=== PATIENT | male | born 1955 | race Caucasian/White ===

== ENCOUNTER 2016-05-25 13:31 | Outpatient (CLI) ==
[2016-02-11 14:04] VITALS: BMI 34.7
[2016-05-25 13:51] LABS: BASOPHILS % (AUTO) 0.4 % (0.0-3.0); EOSINOPHILS # (AUTO) 0.2 K/ul (0.0-0.7); EOSINOPHILS % (AUTO) 3.1 % (0.0-7.0); HEMATOCRIT 47.2 % (42.0-52.0); HEMOGLOBIN 15.4 g/dl (14.0-18.0); IMMATURE GRANULOCYTE % (AUTO) 0.6 % (0.0-5.0); LYMPHOCYTES # (AUTO) 1.7 K/uL (0.60-3.4); LYMPHOCYTES % (AUTO) 32.6 (10.0-50.0); MEAN CORPUSCULAR HEMOGLOBIN 26.9 pg (27.0-31.0); MEAN CORPUSCULAR HGB CONC 32.6 (31.8-35.4); MEAN CORPUSCULAR VOLUME 82.5 fl (80.0-94.0); MONOCYTES # (AUTO) 0.6 K/uL (0.4-2.0); NEUTROPHILS # (AUTO) 2.6 K/ul (2.0-6.9); NEUTROPHILS % (AUTO) 51.3; PLATELET COUNT 158 10^3/uL (140-440); RED BLOOD COUNT 5.72 10^6/ul (4.70-6.10); WHITE BLOOD COUNT 5.09 K/ul (4.2-10.2)
[2016-05-25 14:07] LABS: ALBUMIN 3.9 g/dL (3.4-5.0); ALBUMIN/GLOBULIN RATIO 1.22; ANION GAP 15.6; BILIRUBIN,TOTAL 0.56 mg/dL (0.00-1.20); BUN/CREATININE RATIO 22.82; CALCIUM 10.2 mg/dL (8.2-10.2); CHOL/HDL RATIO 3.5 (4.5-6.4); CREATININE 0.92 mg/dL (0.60-1.10); POTASSIUM 4.6 mmol/L (3.5-5.1); TOTAL PROTEIN 7.1 g/dL (6.4-8.2)
== END 2016-05-25 13:32 | disposition home or self-care (01) ==
LOC: LAB 13:31
PROVIDERS: ATTEND Physician Assistant
DX: Z00.00 Encounter for general adult medical examination without abnormal findings (principal)
CPT/HCPCS: 36415; 80053; 80061; 83036; 85025

== ENCOUNTER 2016-06-07 06:48 | Day surgery (SDC) ==
[2016-02-11 14:04] VITALS: BMI 34.7
[2016-06-07] MEDS ORDERED: LIDOCAINE 1% 20 ML MDV ID ONE (07:10)
[2016-06-07] MEDS ORDERED: LIDOCAINE 1% 20 ML MDV ONE (07:10)
[2016-06-07] MEDS ORDERED: ALBUTEROL 0.083% NEB NEB STA (07:11)
[2016-06-07] MEDS ORDERED: DIPRIVAN 20 ML VIAL IVP ONE (08:00)
[2016-06-07 09:13] VITALS: BP 128/65; TEMP 97.4
--- NOTE | 2016-06-08 07:13 | OP ---
INDICATIONS FOR PROCEDURE: 60-year-old gentleman presents for endoscopy and colonoscopy. He has been having intermittent dysphagia. He also has a history of adenomatous colon polyps on colonoscopy 3 years ago. MEDICATIONS: SEE ANESTHESIA NOTES. PROCEDURE: 1. ENDOSCOPY, ESOPHAGEAL BIOPSY, BOLIVIAN DILATATION. 2. COLONOSCOPY. REPORT: The risks, benefits, alternatives and limitations were discussed in detail with the patient. Informed consent was obtained. After adequate sedation was achieved, the video endoscope was introduced in the posterior pharynx and esophagus under direct vision. I easily advanced down to the second portion of the duodenum. I then slowly withdrew. The duodenal mucosa appeared unremarkable as did the duodenal bulb. The antrum and body were relatively unremarkable. The scope was retroflexed to look at the cardia and fundus which was unremarkable. The scope was anteflexed and withdrawn back in the esophagus. In the distal esophagus, there were two breaks in the esophageal mucosa consistent with acid reflux. There is also circumferential scarring causing stretching right at the GE junction. The inflammatory changes were biopsied for histological review. The remaining esophagus appeared unremarkable. I advanced the scope back down the gastric lumen. I placed the guidewire. Over the guidewire, I easily advanced a 54 [place] dilator with ease. The patient tolerated the procedure well with stable vital signs and pulse oximetry throughout. The patient's bed was turned. A digital rectal exam revealed good tone, no masses. The colonoscope was introduced into the rectum, advanced under direct visual guidance to the cecum. The cecum was identified by the appendiceal orifice and IC valve. I then slowly withdrew the scope in a circumferential manner examining the mucosa quite carefully. I looked on the proximal and distal side of folds and flexures as best as possible. I was able to retroflex the scope in the right colon and left colon to increase visualization. The colonic mucosa was unremarkable its entire length including on retroflex view of the anal canal. The prep was adequate. There was a little bit of semi solid stool scattered here and there but this was able to be washed and suctioned off as best as possible. The withdrawal time was 9 minutes and 32 seconds. The patient tolerated the procedure well with stable vital signs and pulse oximetry throughout. IMPRESSION: 1. 2+ reflux esophagitis 2. Distal esophageal stricture dilated as above 3. Normal colon exam RECOMMENDATIONS: 1. Strict reflux precautions. 2. Pantoprazole 40 mg q.a.m. or similar PPI therapy. 3. Repeat colonoscopy examination again in 5 years based on the prep and history of adenomatous polyps. 4. Will see him back in the office as needed. CC: KAI HUBBARD M.D. [address] [place] [id number] [facility]
== END 2016-06-07 09:27 | disposition home or self-care (01) ==
LOC: SURG 06:48
PROVIDERS: ATTEND Internal Medicine Gastroenterology
DX: Z86.010 Personal history of colon polyps (principal); R13.10 Dysphagia, unspecified; D13.1 Benign neoplasm of stomach; K21.0 Gastro-esophageal reflux disease with esophagitis; K22.2 Esophageal obstruction; E11.9 Type 2 diabetes mellitus without complications; Z87.09 Personal history of other diseases of the respiratory system
CPT/HCPCS: 94640

== ENCOUNTER 2016-08-15 11:19 | Outpatient (CLI) ==
[2016-02-11 14:04] VITALS: BMI 34.7
[2016-08-15 11:38] LABS: BASOPHILS % (AUTO) 0.4 % (0.0-3.0); EOSINOPHILS # (AUTO) 0.1 K/ul (0.0-0.7); HEMOGLOBIN 14.7 g/dl (14.0-18.0); IMMATURE GRANULOCYTE % (AUTO) 0.7 % (0.0-5.0); LYMPHOCYTES # (AUTO) 1.3 K/uL (0.60-3.4); LYMPHOCYTES % (AUTO) 28.2 (10.0-50.0); MEAN CORPUSCULAR HEMOGLOBIN 27.3 pg (27.0-31.0); MEAN CORPUSCULAR HGB CONC 32.7 (31.8-35.4); MEAN CORPUSCULAR VOLUME 83.6 fl (80.0-94.0); MONOCYTES # (AUTO) 0.5 K/uL (0.4-2.0); MONOCYTES % (AUTO) 10.4 (0-10); NEUTROPHILS # (AUTO) 2.7 K/ul (2.0-6.9); NEUTROPHILS % (AUTO) 58.3; PLATELET COUNT 176 10^3/uL (140-440); RED BLOOD COUNT 5.38 10^6/ul (4.70-6.10); WHITE BLOOD COUNT 4.61 K/ul (4.2-10.2)
[2016-08-15 11:59] LABS: ALBUMIN 3.8 g/dL (3.4-5.0); ALBUMIN/GLOBULIN RATIO 1.19; ANION GAP 13.1; BILIRUBIN,TOTAL 0.58 mg/dL (0.00-1.20); BUN/CREATININE RATIO 24.32; CALCIUM 9.1 mg/dL (8.2-10.2); CREATININE 0.74 mg/dL (0.60-1.10); POTASSIUM 4.1 mmol/L (3.5-5.1)
== END 2016-08-15 11:20 | disposition home or self-care (01) ==
LOC: LAB 11:19
PROVIDERS: ATTEND Physician Assistant
DX: E11.9 Type 2 diabetes mellitus without complications (principal); Z00.00 Encounter for general adult medical examination without abnormal findings
CPT/HCPCS: 36415; 80053; 83036; 85025

== ENCOUNTER 2016-08-19 10:01 | Outpatient (CLI) ==
[2016-02-11 14:04] VITALS: BMI 34.7
[2016-08-22 11:42] LABS: PSA, FREE 1.41 ng/mL
== END 2016-08-19 10:02 | disposition home or self-care (01) ==
LOC: LAB 10:01
PROVIDERS: ATTEND Student in an Organized Health Care Education/Training Program
DX: Z12.5 Encounter for screening for malignant neoplasm of prostate (principal); R97.20 Elevated prostate specific antigen [PSA]
CPT/HCPCS: 36415

== ENCOUNTER 2016-10-30 14:01 | Emergency (ER) ==
[2016-10-30 14:06] VITALS: BP 133/78; TEMP 99.5; BMI 32.1
[2016-10-30 14:27] LABS: BILIRUBIN,URINE 2+ (NEGATIVE); KETONES,URINE 1+ (NEGATIVE); LEUKOCYTE ESTERASE ,URINE Negative (NEGATIVE); NITRITE,URINE Positive (NEGATIVE); PH,URINE 5.5 (5-9); PROTEIN,URINE 3+ (NEGATIVE); URINE, BLOOD 3+ (NEGATIVE)
[2016-10-30 14:31] LABS: ADD URINE MICROSCOPIC YES
[2016-10-30] MEDS ORDERED: URO-JET MUCOUSMEMB STA (14:36)
--- NOTE | 2016-10-30 15:21 | ED.PDOC ---
General ED Provider: Dr. JUNI STEVENSON-ER Chief Complaint: Urinary Problem Stated Complaint: i cant pee Time Seen by Physician: 14:10 Mode of Arrival: Walk-In Information Source: Patient Exam Limitations: No limitations Primary Care Provider: EMELIA CASTANEDA Nursing and Triage Documentation Reviewed and Agree: Yes Complaint Exam - Complaint/Exam Patient Complains of: Reports: Dysuria Onset/Duration: a few hours Symptoms Are: Still present Timing: Constant Episodes of Voiding Over Last 12 Hours: 1 Initial Severity: Mild Current Severity: Mild Location of Pain: Reports: Penis, Suprapubic Character: Reports: Constant pressure, Dull, Bloody urine Aggravating: Reports: Straining Alleviating: Reports: None Associated Signs and Symptoms: Reports: Hematuria, Dysuria, Decreased urine output. Denies: Diaphoresis, Back pain, Fever, Constipation, Blood in stool, Rectal pain, Appetite change, Nausea, Vomiting, Penile swelling, Penile discharge, Increased urine frequency, Increased thirst, Decreased activity, Lethargy, Scrotal pain, Scrotal swelling, Abdominal Pain Related History: Reports: Similar episode Testicular Torsion Risk Factors: Reports: None Related Surgical History: Reports: None Abdominal Findings: Present: None Differential Diagnoses: Prostatitis, Other Review of Systems - Review Of Systems Constitutional: Reports: No symptoms Eyes: Reports: No symptoms Ears, Nose, Mouth, Throat: Reports: No symptoms Respiratory: Reports: No symptoms Cardiac: Reports: No symptoms GI: Reports: No symptoms : Reports: Dysuria, Hematuria, Pain Musculoskeletal: Reports: No symptoms Skin: Reports: No symptoms Neurological: Reports: No symptoms Endocrine: Reports: No symptoms Hematologic/Lymphatic: Reports: No symptoms All Other Systems: Reviewed and Negative Past Medical History - Past Medical History Previously Healthy: Yes Endocrine: Reports: DM 2, Dyslipidemia Cardiovascular: Reports: None Respiratory: Reports: COPD Hematological: Reports: None Gastrointestinal: Reports: GERD Genitourinary: Reports: None Neuro/Psych: Reports: Other (note meds) Musculoskeletal: Reports: None Cancer: Reports: None Other Pertinent Past Medical History: ventral hernia - Surgical History General Surgical History: Reports: Unknown - Family History Family History: Reports: Unknown - Social History Smoking Status: Former smoker Hx Substance Use: No Alcohol Screening: None Lives: With family Physical Exam - Physical Exam Appearance: Well-appearing, No pain distress, Well-nourished Pain Distress: Mild Eyes: MIN, EOMI, Conjunctiva clear ENT: Ears normal, Nose normal, Oropharynx normal Neck: Supple Respiratory: Airway patent Cardiovascular: RRR, Pulses normal, No rub, No murmur GI/: Soft Musculoskeletal: Normal strength, ROM intact, No edema, No calf tenderness Skin: Warm, Dry, Normal color Neurological: Sensation intact, Motor intact, Reflexes intact, Cranial nerves intact, Alert, Oriented Psychiatric: Affect appropriate, Mood appropriate, Anxious Critical Care Note - Critical Care Note Total Time (mins): 0 Course - Course Orders, Labs, Meds: Lab Review 10/30/16 14:10 Urine Color Red Urine Clarity Cloudy Urine pH 5.5 Ur Specific [place] 1.020 Urine Protein 3+ Urine Glucose (UA) 2+ Urine Ketones 1+ Urine Blood 3+ Urine Nitrite Positive Urine Bilirubin 2+ Urine Urobilinogen 1.0 Ur Leukocyte Esterase Negative Urine Microscopic RBC Tntc Urine Microscopic WBC 5-10 Ur Squamous Epith Cells Not Reportable Orders Category Date Time Status Bladder Scan [ED BLADDER SCAN] .ONCE EMERGENCY 10/30/16 14:07 Active Garcia [ED CATHETER INSERTION AND CARE] .ONCE EMERGENCY 10/30/16 14:36 Active URINALYSIS C & S IF INDICATED Stat LAB 10/30/16 14:10 Completed URINE CULTURE Stat LAB 10/30/16 14:31 Received Lidocaine HCl [Uro-Jet] MEDS 10/30/16 14:36 Discontinued 10 ml [email or web address] ONCE STA Medications Discontinued Medications Generic Name Dose Route Start Last Admin Trade Name Freq PRN Reason Stop Dose Admin Lidocaine HCl 10 ml 10/30/16 14:36 10/30/16 15:11 Uro-Jet [email or web address] 10/30/16 14:37 10 ml ONCE STA Administration Vital Signs: Temp Pulse Resp BP Pulse Ox 10/30/16 14:02 99.5 F 106 H 20 133/78 94 L Departure - Departure Time of Disposition: 15:21 Disposition: TSF SHORT-TRM HOSP Discharge Problem: Retention of urine Instructions: Urinary Retention in Men (ED) Condition: Good Pt referred to PMD for follow-up: Yes Allergies/Adverse Reactions: Allergies Penicillins Adverse Reaction (Verified 10/30/16 14:07) strawberry [[place]] Adverse Reaction (Verified 10/30/16 14:07) Home Medications: Ambulatory Orders Aspirin [Aspirin EC] 81 mg PO DAILYWM 03/12/13 Transfer Form Completed: Yes Disposition Discussed With: Patient
== END 2016-10-30 15:45 | disposition short-term general hospital (02) ==
LOC: ED 14:01
DX: R33.9 Retention of urine, unspecified (principal); R30.0 Dysuria; R31.0 Gross hematuria
CPT/HCPCS: 81001; 87086; 99285

== ENCOUNTER 2016-12-14 09:35 | Outpatient (CLI) ==
[2016-12-14 10:05] LABS: BASOPHILS # (AUTO) 0.1 K/uL (0-0.2); BASOPHILS % (AUTO) 0.6 % (0.0-3.0); EOSINOPHILS # (AUTO) 0.2 K/ul (0.0-0.7); HEMATOCRIT 43.4 % (42.0-52.0); HEMOGLOBIN 14.2 g/dl (14.0-18.0); IMMATURE GRANULOCYTE % (AUTO) 0.6 % (0.0-5.0); LYMPHOCYTES # (AUTO) 1.7 K/uL (0.60-3.4); LYMPHOCYTES % (AUTO) 21.7 (10.0-50.0); MEAN CORPUSCULAR HEMOGLOBIN 26.6 pg (27.0-31.0); MEAN CORPUSCULAR HGB CONC 32.7 (31.8-35.4); MEAN CORPUSCULAR VOLUME 81.4 fl (80.0-94.0); MONOCYTES # (AUTO) 0.8 K/uL (0.4-2.0); MONOCYTES % (AUTO) 9.9 (0-10); NEUTROPHILS % (AUTO) 64.2; PLATELET COUNT 188 10^3/uL (140-440); RED BLOOD COUNT 5.33 10^6/ul (4.70-6.10); WHITE BLOOD COUNT 7.74 K/ul (4.2-10.2)
[2016-12-14 10:17] LABS: ALBUMIN 3.7 g/dL (3.4-5.0); ALBUMIN/GLOBULIN RATIO 1.09; ANION GAP 17.2; BILIRUBIN,TOTAL 0.31 mg/dL (0.00-1.20); BUN/CREATININE RATIO 24.05; CALCIUM 9.6 mg/dL (8.2-10.2); CHOL/HDL RATIO 3.3 (4.5-6.4); CREATININE 0.79 mg/dL (0.60-1.10); POTASSIUM 4.2 mmol/L (3.5-5.1); TOTAL PROTEIN 7.1 g/dL (5.8-8.1)
== END 2016-12-14 09:36 | disposition home or self-care (01) ==
LOC: LAB 09:35
PROVIDERS: ATTEND Physician Assistant
DX: E11.40 Type 2 diabetes mellitus with diabetic neuropathy, unspecified (principal); R97.20 Elevated prostate specific antigen [PSA]; Z12.5 Encounter for screening for malignant neoplasm of prostate
CPT/HCPCS: 36415; 80053; 80061; 83036; 85025

== ENCOUNTER 2016-12-19 03:01 | Emergency (ER) ==
[2016-12-19 03:09] VITALS: BP 188/87; TEMP 98.6; BMI 32.9
[2016-12-19] MEDS ORDERED: URO-JET MUCOUSMEMB STA (03:18)
--- NOTE | 2016-12-19 03:21 | ED.PDOC ---
General ED Provider: Dr. ANNABEL SHI Chief Complaint: Urinary Problem Stated Complaint: Pateint states he has not voided for the pat 24 hours. Last time he had this he had tohave a howell catheter. Has had prior prostates sugery. Time Seen by Physician: 03:19 Mode of Arrival: Walk-In Information Source: Patient Exam Limitations: No limitations Primary Care Provider: EMELIA CASTANEDA Nursing and Triage Documentation Reviewed and Agree: Yes Review of Systems - Review Of Systems Constitutional: Reports: No symptoms Eyes: Reports: No symptoms Ears, Nose, Mouth, Throat: Reports: No symptoms Respiratory: Reports: No symptoms Cardiac: Reports: No symptoms GI: Reports: Abdominal pain (hypogastric area/ pressure ) : Reports: Other (difficulty voiding ) Musculoskeletal: Reports: No symptoms Skin: Reports: No symptoms Neurological: Reports: No symptoms Endocrine: Reports: No symptoms Hematologic/Lymphatic: Reports: No symptoms All Other Systems: Reviewed and Negative Past Medical History - Past Medical History Previously Healthy: Yes Endocrine: Reports: DM 2, Dyslipidemia Cardiovascular: Reports: None Respiratory: Reports: COPD Hematological: Reports: None Gastrointestinal: Reports: GERD Genitourinary: Reports: None Neuro/Psych: Reports: Other (note meds) Musculoskeletal: Reports: None Cancer: Reports: None Other Pertinent Past Medical History: ventral hernia - Surgical History General Surgical History: Reports: Unknown - Family History Family History: Reports: Unknown - Social History Smoking Status: Former smoker Hx Substance Use: No Alcohol Screening: None - Immunizations Tetanus Shot up to Date: Yes Physical Exam - Physical Exam Appearance: Ill-appearing, Obese Ill-appearing: Mild Pain Distress: Moderate Eyes: MIN, EOMI, Conjunctiva clear ENT: Ears normal, Nose normal, Oropharynx normal Neck: Supple Respiratory: Airway patent, Breath sounds clear, Breath sounds equal, Respirations nonlabored Cardiovascular: RRR, Pulses normal, No rub, No murmur GI/: Soft, No masses, Bowel sounds normal, No Organomegaly, Tender ( suprapubic area ) Musculoskeletal: Normal strength, ROM intact, No edema, No calf tenderness Skin: Warm, Dry, Normal color Neurological: Sensation intact, Motor intact, Reflexes intact, Cranial nerves intact, Alert, Oriented Psychiatric: Affect appropriate, Mood appropriate Critical Care Note - Critical Care Note Total Time (mins): 0 Course - Course Orders, Labs, Meds: Orders Category Date Time Status Howell [CATHETER INSERTION AND CARE] Q8HR CARE 12/19/16 03:15 Active UA [URINALYSIS C & S IF INDICATED] Stat LAB 12/19/16 03:58 Ordered Lidocaine HCl [Uro-Jet] MEDS 12/19/16 03:18 Discontinued 10 ml [email or web address] ONCE STA Medications Discontinued Medications Generic Name Dose Route Start Last Admin Trade Name Dorian PRN Reason Stop Dose Admin Lidocaine HCl 10 ml 12/19/16 03:18 12/19/16 03:55 Uro-Jet [email or web address] 12/19/16 03:19 10 ml ONCE STA Administration Vital Signs: Temp Pulse Resp BP Pulse Ox 12/19/16 03:02 98.6 F 108 H 20 188/87 H 96 Departure - Departure Time of Disposition: 03:20 Disposition: HOME SELF-CARE Discharge Problem: Urinary retention Instructions: Urinary Retention in Men (ED) Condition: Fair Pt referred to PMD for follow-up: Yes Additional Instructions: Follow up with your urologist in 3 days Use leg back Allergies/Adverse Reactions: Allergies Penicillins Adverse Reaction (Verified 10/30/16 14:07) strawberry [[place]] Adverse Reaction (Verified 10/30/16 14:07) Home Medications: Ambulatory Orders Aspirin [Aspirin EC] 81 mg PO DAILYWM 03/12/13 Disposition Discussed With: Patient
[2016-12-19 04:49] LABS: BILIRUBIN,URINE Negative (NEGATIVE); KETONES,URINE Negative (NEGATIVE); LEUKOCYTE ESTERASE ,URINE Trace (NEGATIVE); NITRITE,URINE Negative (NEGATIVE); PROTEIN,URINE Negative (NEGATIVE); URINE, BLOOD 2+ (NEGATIVE)
[2016-12-19 04:56] LABS: ADD URINE MICROSCOPIC YES
== END 2016-12-19 04:09 | disposition home or self-care (01) ==
LOC: ED 03:01
DX: R33.9 Retention of urine, unspecified (principal); R10.9 Unspecified abdominal pain
CPT/HCPCS: 51798; 81001; 99283

== ENCOUNTER 2016-12-31 02:53 | Emergency (ER) ==
[2016-12-31 03:03] VITALS: BP 155/81; TEMP 97.2; BMI 32.1
[2016-12-31] MEDS ORDERED: URO-JET MUCOUSMEMB STA (03:21)
[2016-12-31] MEDS ORDERED: FLOMAX PO STA (03:22)
--- NOTE | 2016-12-31 03:25 | ED.PDOC ---
General ED Provider: Dr. JUNI STEVENSON-ER Chief Complaint: Urinary Problem Stated Complaint: i cant pee--the urologist was supposed to give me flomax but didnt Time Seen by Physician: 03:00 Mode of Arrival: Walk-In Information Source: Patient Exam Limitations: No limitations Primary Care Provider: EMELIA CASTANEDA Nursing and Triage Documentation Reviewed and Agree: Yes Complaint Exam - Complaint/Exam Patient Complains of: Reports: Groin pain Symptoms Are: Still present Timing: Constant Initial Severity: Mild Current Severity: Moderate Location of Pain: Reports: Suprapubic Character: Reports: Dull, Cramping Aggravating: Reports: Voiding, Straining, Palpation Alleviating: Reports: None Associated Signs and Symptoms: Reports: Decreased urine output. Denies: Diaphoresis, Back pain, Fever, Hematuria, Dysuria, Constipation, Blood in stool , Rectal pain, Appetite change, Nausea, Vomiting, Penile swelling, Penile discharge Testicular Torsion Risk Factors: Reports: None Surgical Obstruction Risk Factors: Reports: None Abdominal Findings: Present: Abdominal distention Differential Diagnoses: Other Review of Systems - Review Of Systems Constitutional: Reports: No symptoms Eyes: Reports: No symptoms Ears, Nose, Mouth, Throat: Reports: No symptoms Respiratory: Reports: No symptoms Cardiac: Reports: No symptoms GI: Reports: No symptoms : Reports: Other Musculoskeletal: Reports: No symptoms Skin: Reports: No symptoms Neurological: Reports: No symptoms Endocrine: Reports: No symptoms Hematologic/Lymphatic: Reports: No symptoms All Other Systems: Reviewed and Negative Past Medical History - Past Medical History Previously Healthy: Yes Endocrine: Reports: DM 2, Dyslipidemia Cardiovascular: Reports: None Respiratory: Reports: COPD Hematological: Reports: None Gastrointestinal: Reports: GERD Genitourinary: Reports: None Neuro/Psych: Reports: Other (note meds) Musculoskeletal: Reports: None Cancer: Reports: None Other Pertinent Past Medical History: ventral hernia - Surgical History General Surgical History: Reports: Unknown - Family History Family History: Reports: Unknown - Social History Smoking Status: Former smoker Hx Substance Use: No Alcohol Screening: None Lives: With family - Immunizations Tetanus Shot up to Date: Yes Physical Exam - Physical Exam Appearance: Well-appearing, No pain distress, Well-nourished Pain Distress: Mild Eyes: MIN, EOMI, Conjunctiva clear ENT: Ears normal, Nose normal, Oropharynx normal Neck: Supple Respiratory: Airway patent, Breath sounds clear, Breath sounds equal, Respirations nonlabored Cardiovascular: RRR, Pulses normal, No rub, No murmur GI/: Soft, Nontender, No masses, Bowel sounds normal, No Organomegaly Musculoskeletal: Normal strength, ROM intact, No edema, No calf tenderness Skin: Warm Neurological: Sensation intact, Motor intact, Reflexes intact, Cranial nerves intact, Alert, Oriented Psychiatric: Affect appropriate Critical Care Note - Critical Care Note Total Time (mins): 0 Course - Course Orders, Labs, Meds: Orders Category Date Time Status Bladder [ED BLADDER SCAN] .ONCE EMERGENCY 12/31/16 03:21 Active Catheter [ED CATHETER INSERTION AND CARE] .ONCE EMERGENCY 12/31/16 03:21 Active Lidocaine HCl [Uro-Jet] MEDS 12/31/16 03:21 Discontinued 10 ml [email or web address] ONCE STA Tamsulosin HCl [Flomax] MEDS 12/31/16 03:22 Stat 0.4 mg PO ONCE STA Medications Generic Name Dose Route Start Last Admin Trade Name Freq PRN Reason Stop Dose Admin Tamsulosin HCl 0.4 mg 12/31/16 03:22 Flomax PO 12/31/16 03:23 ONCE STA Discontinued Medications Generic Name Dose Route Start Last Admin Trade Name Freq PRN Reason Stop Dose Admin Lidocaine HCl 10 ml 12/31/16 03:21 Uro-Jet [email or web address] 12/31/16 03:22 ONCE STA Vital Signs: Temp Pulse Resp BP Pulse Ox 12/31/16 02:54 97.2 F L 113 H 24 155/81 H 96 Departure - Departure Time of Disposition: 03:25 Disposition: HOME SELF-CARE Discharge Problem: Urinary retention Instructions: Urinary Retention in Men (ED) Condition: Fair Pt referred to PMD for follow-up: Yes Additional Instructions: flomax 0.4mg q daily #30--f/u urology Allergies/Adverse Reactions: Allergies Penicillins Adverse Reaction (Verified 12/31/16 03:02) strawberry [[place]] Adverse Reaction (Verified 12/31/16 03:02) Home Medications: Ambulatory Orders Aspirin [Aspirin EC] 81 mg PO DAILYWM 03/12/13 Disposition Discussed With: Patient
[2016-12-31 03:43] LABS: ADD URINE MICROSCOPIC YES; BILIRUBIN,URINE Negative (NEGATIVE); KETONES,URINE Negative (NEGATIVE); LEUKOCYTE ESTERASE ,URINE 1+ (NEGATIVE); NITRITE,URINE Negative (NEGATIVE); PH,URINE 5.5 (5-9); PROTEIN,URINE Trace (NEGATIVE); URINE, BLOOD 1+ (NEGATIVE)
== END 2016-12-31 04:10 | disposition home or self-care (01) ==
LOC: ED 02:53
DX: R33.9 Retention of urine, unspecified (principal); R10.30 Lower abdominal pain, unspecified; E11.9 Type 2 diabetes mellitus without complications; E78.5 Hyperlipidemia, unspecified
CPT/HCPCS: 36415; 74176; 80053; 81001; 82150; 82272; 83690; 85025; 99283

== ENCOUNTER 2016-12-31 08:27 | Emergency (ER) ==
[2016-12-31 08:28] VITALS: BMI 32.1
[2016-12-31 08:34] VITALS: BP 160/89; TEMP 98.9
[2016-12-31] MEDS ORDERED: URO-JET MUCOUSMEMB STA (08:56)
[2016-12-31 09:07] LABS: BASOPHILS % (AUTO) 0.5 % (0.0-3.0); EOSINOPHILS # (AUTO) 0.2 K/ul (0.0-0.7); EOSINOPHILS % (AUTO) 3.7 % (0.0-7.0); HEMATOCRIT 42.1 % (42.0-52.0); HEMOGLOBIN 13.9 g/dl (14.0-18.0); IMMATURE GRANULOCYTE % (AUTO) 0.5 % (0.0-5.0); LYMPHOCYTES # (AUTO) 1.6 K/uL (0.60-3.4); LYMPHOCYTES % (AUTO) 26.4 (10.0-50.0); MEAN CORPUSCULAR HEMOGLOBIN 26.5 pg (27.0-31.0); MEAN CORPUSCULAR VOLUME 80.3 fl (80.0-94.0); MONOCYTES # (AUTO) 0.7 K/uL (0.4-2.0); MONOCYTES % (AUTO) 11.2 (0-10); NEUTROPHILS # (AUTO) 3.4 K/ul (2.0-6.9); NEUTROPHILS % (AUTO) 57.7; PLATELET COUNT 189 10^3/uL (140-440); RED BLOOD COUNT 5.24 10^6/ul (4.70-6.10); WHITE BLOOD COUNT 5.87 K/ul (4.2-10.2)
[2016-12-31 09:28] LABS: ALBUMIN 3.7 g/dL (3.4-5.0); ALBUMIN/GLOBULIN RATIO 1.19; ANION GAP 13.9; BILIRUBIN,TOTAL 0.34 mg/dL (0.00-1.20); BUN/CREATININE RATIO 28.04; CALCIUM 9.9 mg/dL (8.2-10.2); CREATININE 0.82 mg/dL (0.60-1.10); POTASSIUM 3.9 mmol/L (3.5-5.1); TOTAL PROTEIN 6.8 g/dL (5.8-8.1)
--- NOTE | 2016-12-31 09:34 | ED.PDOC ---
General ED Provider: Dr. ANNABEL SHI Chief Complaint: Urinary Problem Stated Complaint: Pateint is a 61 year old male who comes to the ER with compalins of difficuly voiding. He was seen last night with similar problems. Time Seen by Physician: 09:00 Mode of Arrival: Walk-In Information Source: Patient Exam Limitations: No limitations Primary Care Provider: EMELIA CASTANEDA Nursing and Triage Documentation Reviewed and Agree: Yes Complaint Exam - Complaint/Exam Patient Complains of: Reports: Groin pain Onset/Duration: this morning Symptoms Are: Still present Timing: Constant Initial Severity: Moderate Current Severity: Severe Location of Pain: Reports: Suprapubic Associated Signs and Symptoms: Reports: Decreased urine output (no urine output for 5 hours). Denies: Diaphoresis, Back pain, Fever, Hematuria, Dysuria, Constipation, Blood in stool, Rectal pain, Appetite change, Nausea, Vomiting, Penile swelling, Penile discharge, Increased urine frequency, Increased thirst, Decreased activity, Lethargy, Scrotal pain, Scrotal swelling, Abdominal Pain Testicular Torsion Risk Factors: Reports: None Surgical Obstruction Risk Factors: Reports: None Related Surgical History: Reports: None Abdominal Findings: Present: None. Absent: Abdominal distention, Unequal femoral pulses, Rebound tenderness, Peritoneal signs Differential Diagnoses: UTI, Ureteral Calculi Review of Systems - Review Of Systems Constitutional: Reports: No symptoms Eyes: Reports: No symptoms Ears, Nose, Mouth, Throat: Reports: No symptoms Respiratory: Reports: No symptoms Cardiac: Reports: No symptoms GI: Reports: No symptoms : Reports: Pain, Other (Difficulty urinating ) Musculoskeletal: Reports: No symptoms Skin: Reports: No symptoms Neurological: Reports: No symptoms Endocrine: Reports: No symptoms Hematologic/Lymphatic: Reports: No symptoms All Other Systems: Reviewed and Negative Past Medical History - Past Medical History Previously Healthy: Yes Endocrine: Reports: DM 2, Dyslipidemia Cardiovascular: Reports: None Respiratory: Reports: COPD Hematological: Reports: None Gastrointestinal: Reports: GERD Genitourinary: Reports: None, Other (urinary retension.) Neuro/Psych: Reports: Other (note meds) Musculoskeletal: Reports: None Cancer: Reports: None Other Pertinent Past Medical History: ventral hernia - Surgical History General Surgical History: Reports: Unknown - Family History Family History: Reports: Unknown - Social History Smoking Status: Former smoker Hx Substance Use: No Alcohol Screening: None Physical Exam - Physical Exam Appearance: Ill-appearing Ill-appearing: Moderate Pain Distress: Severe Neck: Supple Respiratory: Airway patent, Breath sounds clear, Breath sounds equal, Respirations nonlabored Cardiovascular: Pulses normal, No rub, No murmur, Tachycardia GI/: Soft, No masses, Bowel sounds normal, No Organomegaly, Tender ( suprapubic area. ) Skin: Warm, Dry, Normal color Neurological: Sensation intact, Motor intact, Reflexes intact, Cranial nerves intact, Alert, Oriented Psychiatric: Anxious Re-Evaluation - Re-Evaluation Time of Re-Evaluation: 10:00 Status: Improved (after howell catheter was placed ) Vital Signs Stable: Yes Pain Level: improved. Critical Care Note - Critical Care Note Total Time (mins): 0 Course - Course Hematology/Chemistry: 12/31/16 08:58 12/31/16 08:58 Orders, Labs, Meds: Lab Review 12/31/16 12/31/16 12/31/16 08:58 08:58 09:29 WBC 5.87 RBC 5.24 Hgb 13.9 L Hct 42.1 MCV 80.3 MCH 26.5 L MCHC 33.0 RDW Coeff of Edwin 14.3 Plt Count 189 Immature Gran % (Auto) 0.5 Neut % (Auto) 57.7 Lymph % (Auto) 26.4 [place] % (Auto) 11.2 H Eos % (Auto) 3.7 Baso % (Auto) 0.5 Immature Gran # (Auto) 0.0 Neut # 3.4 Lymph # 1.6 [place] # 0.7 Eos # 0.2 Baso # 0.0 Sodium 143 Potassium 3.9 Chloride 106 Carbon Dioxide 27 Anion Gap 13.9 BUN 23 H Creatinine 0.82 Estimated GFR (MDRD) 96.00 BUN/Creatinine Ratio 28.04 Glucose 163 H Calcium 9.9 Total Bilirubin 0.34 AST 16 ALT 18 Alkaline Phosphatase 83 Total Protein 6.8 Albumin 3.7 Globulin 3.1 Albumin/Globulin Ratio 1.19 Amylase 68 Lipase 29 Stl Occult Blood (IFOB) Negative Stool Occult Blood #2 No specimen received Stool Occult Blood #3 No specimen received Orders Category Date Time Status Enema [ENEMA/RECTAL TUBE] .ONCE CARE 12/31/16 09:28 Active Howell [ED CATHETER INSERTION AND CARE] .ONCE EMERGENCY 12/31/16 08:56 Active AMYLASE Stat LAB 12/31/16 08:58 Completed CBC W/ AUTO DIFF Stat LAB 12/31/16 08:58 Completed COMPREHENSIVE METABOLIC PANEL Stat LAB 12/31/16 08:58 Completed LIPASE Stat LAB 12/31/16 08:58 Completed OCCULT BLOOD, STOOL Stat LAB 12/31/16 09:29 Completed Lidocaine HCl [Uro-Jet] MEDS 12/31/16 08:56 Discontinued 10 ml [email or web address] ONCE STA CT ABD/PEL WO RENAL STONE PROT Stat RADS 12/31/16 08:46 Completed Medications Discontinued Medications Generic Name Dose Route Start Last Admin Trade Name Dorian PRN Reason Stop Dose Admin Lidocaine HCl 10 ml 12/31/16 08:56 12/31/16 09:20 Uro-Jet [email or web address] 12/31/16 08:57 10 ml ONCE STA Administration Vital Signs: Temp Pulse Resp BP Pulse Ox 12/31/16 08:29 98.9 F 108 H 20 160/89 H 96 Departure - Departure Time of Disposition: 10:11 Disposition: HOME SELF-CARE Discharge Problem: Urinary retention Instructions: Urinary Retention in Men (ED) Condition: Stable Pt referred to PMD for follow-up: Yes Additional Instructions: Use the leg bag until seen by urologist Take Miralax daily to keep you regular Follow uip with PCP in 3 days continue flomax Prescriptions: Polyethylene Glycol 3350 [Miralax] 17 gm PO DAILY #900 powd.pack Tamsulosin HCl [Flomax] 0.4 mg PO DAILY #30 cap.er.24h Allergies/Adverse Reactions: Allergies Penicillins Adverse Reaction (Verified 12/31/16 08:34) strawberry [[place]] Adverse Reaction (Verified 12/31/16 08:34) Home Medications: Ambulatory Orders Aspirin [Aspirin EC] 81 mg PO DAILYWM 03/12/13 Polyethylene Glycol 3350 [Miralax] 17 gm PO DAILY #900 powd.pack 12/31/16 Tamsulosin HCl [Flomax] 0.4 mg PO DAILY #30 cap.er.24h 12/31/16 Disposition Discussed With: Patient
[2016-12-31 09:40] LABS: OCCULT BLOOD INTERNAL QC 1 INTERNAL QC VALID; OCCULT BLOOD INTERNAL QC 2 INTERNAL QC VALID; OCCULT BLOOD INTERNAL QC 3 INTERNAL QC VALID; OCCULT BLOOD SAMPLE 1 NEGATIVE (NEGATIVE); OCCULT BLOOD SAMPLE 2 NO SPECIMEN RECEIVED (NEGATIVE); OCCULT BLOOD SAMPLE 3 NO SPECIMEN RECEIVED (NEGATIVE)
--- NOTE | 2016-12-31 09:41 | CT ---
EXAM: CT scan of the abdomen and pelvis without contrast HISTORY: Abdominal pain, difficulty for the exam TECHNIQUE: Helical imaging of the abdomen and pelvis was performed without contrast. 3 mm thin axia l images and coronal and sagittal reconstructions were provided for interpretation. Comparison CT scan of the abdomen and pelvis dated 10/03/2012. FINDINGS: The liver, spleen, pancreas, adrenal glands, kidneys appear normal. The proximal ureters are normal size. The small and large bowel loops are normal caliber. There is no free air. No acute abnormalities are seen within the anterior abdominal wall. Postoperative changes are seen within the low anterior abdominal wall. The appendix was not seen. No definite inflammatory changes are seen i n the right lower quadrant of the abdomen. The helical images obtained through the pelvis demonstrate a normal appearance of the rectum, urinary bladder. There is no free fluid seen within the pelvis. Lung bases are clear. No lytic or blastic lesions are seen within the osseous structures. IMPRESSION: There is no bowel obstruction or acute inflammatory change seen within the abdomen and p irineo. There is no ureteral obstruction. Postoperative changes are seen within the low anterior abdominal wall for repair of hernia. There is no evidence of recurrent or residual hernia.
== END 2016-12-31 10:30 | disposition home or self-care (01) ==
LOC: ED 08:27
DX: R33.9 Retention of urine, unspecified (principal); R10.30 Lower abdominal pain, unspecified; E11.9 Type 2 diabetes mellitus without complications; E78.5 Hyperlipidemia, unspecified
CPT/HCPCS: 36415; 74176; 80053; 82150; 82272; 83690; 85025; 99283

== ENCOUNTER 2017-01-09 03:23 | Emergency (ER) ==
[2017-01-09 03:30] VITALS: BP 133/64; TEMP 96.4; BMI 32.3
[2017-01-09] MEDS ORDERED: URO-JET MUCOUSMEMB STA (03:34)
--- NOTE | 2017-01-09 03:37 | ED.PDOC ---
General ED Provider: Dr. JUNI STEVENSON-ER Chief Complaint: Urinary Problem Stated Complaint: i cant pemerari Time Seen by Physician: 03:35 Mode of Arrival: Walk-In Information Source: Patient Exam Limitations: No limitations Primary Care Provider: EMELIA CASTANEDA Nursing and Triage Documentation Reviewed and Agree: Yes Complaint Exam - UTI Female Complaint/Exam Onset/Duration: several hours Symptoms Are: Still present Timing: Constant Initial Severity: Mild Current Severity: Mild Location of Pain: Reports: Suprapubic Associated Signs and Symptoms: Denies: Fever, Chills, Flank pain, Dyspareunia, Vaginal discharge Related Surgical History: Reports: None CVA Tenderness: No Suprapubic Tenderness: Yes Differential Diagnoses: Other (urinary retention) Review of Systems - Review Of Systems Constitutional: Reports: No symptoms Eyes: Reports: No symptoms Ears, Nose, Mouth, Throat: Reports: No symptoms Respiratory: Reports: No symptoms Cardiac: Reports: No symptoms GI: Reports: No symptoms : Reports: Pain Musculoskeletal: Reports: No symptoms Skin: Reports: No symptoms Neurological: Reports: No symptoms Endocrine: Reports: No symptoms Hematologic/Lymphatic: Reports: No symptoms All Other Systems: Reviewed and Negative Past Medical History - Past Medical History Previously Healthy: Yes Endocrine: Reports: DM 2, Dyslipidemia Cardiovascular: Reports: None Respiratory: Reports: COPD Hematological: Reports: None Gastrointestinal: Reports: GERD Genitourinary: Reports: None, Other (urinary retension.) Neuro/Psych: Reports: Other (note meds) Musculoskeletal: Reports: None Cancer: Reports: None Other Pertinent Past Medical History: ventral hernia - Surgical History General Surgical History: Reports: Unknown - Family History Family History: Reports: Unknown - Social History Smoking Status: Former smoker Hx Substance Use: No Alcohol Screening: None Lives: With family - Immunizations Tetanus Shot up to Date: Yes Physical Exam - Physical Exam Appearance: Well-appearing, No pain distress, Well-nourished Pain Distress: Mild Eyes: MIN, EOMI, Conjunctiva clear ENT: Ears normal, Nose normal, Oropharynx normal Neck: Supple Respiratory: Airway patent, Breath sounds clear, Breath sounds equal, Respirations nonlabored Cardiovascular: RRR GI/: Tender Musculoskeletal: Normal strength, ROM intact, No edema, No calf tenderness Skin: Warm Neurological: Sensation intact Psychiatric: Affect appropriate, Mood appropriate Critical Care Note - Critical Care Note Total Time (mins): 0 Course - Course Orders, Labs, Meds: Orders Category Date Time Status Bladder Scan [ED BLADDER SCAN] .ONCE EMERGENCY 01/09/17 03:33 Active Howell [ED CATHETER INSERTION AND CARE] .ONCE EMERGENCY 01/09/17 03:34 Active Lidocaine HCl [Uro-Jet] MEDS 01/09/17 03:34 Discontinued 10 ml MUCOUSMEMB ONCE STA Medications Discontinued Medications Generic Name Dose Route Start Last Admin Trade Name Obinnaq PRN Reason Stop Dose Admin Lidocaine HCl 10 ml 01/09/17 03:34 Uro-Jet MUCOUSMEMB 01/09/17 03:35 ONCE STA the patient requested for us to leave howell catheter in for now until he discusses with urology today--bladder scan revealed over 300cc of urine in the bladder Vital Signs: Temp Pulse Resp BP Pulse Ox 01/09/17 03:23 96.4 F L 102 H 28 H 133/64 95 Departure - Departure Time of Disposition: 03:37 Disposition: HOME SELF-CARE Discharge Problem: Urinary retention Instructions: Urinary Retention in Men (ED) Condition: Good Pt referred to PMD for follow-up: Yes Additional Instructions: f/u with urology today Allergies/Adverse Reactions: Allergies Penicillins Adverse Reaction (Verified 01/09/17 03:30) strawberry [[place]] Adverse Reaction (Verified 01/09/17 03:30) Home Medications: Ambulatory Orders Aspirin [Aspirin EC] 81 mg PO DAILYWM 03/12/13 Polyethylene Glycol 3350 [Miralax] 17 gm PO DAILY #900 powd.pack 12/31/16 Tamsulosin HCl [Flomax] 0.4 mg PO DAILY #30 cap.er.24h 12/31/16 Disposition Discussed With: Patient
== END 2017-01-09 04:42 | disposition home or self-care (01) ==
LOC: ED 03:23
DX: R33.9 Retention of urine, unspecified (principal)
CPT/HCPCS: 51798; 99282

== ENCOUNTER 2017-01-18 11:36 | Emergency (ER) ==
[2017-01-18 11:36] VITALS: BMI 32.3
[2017-01-18 11:40] VITALS: BP 119/78; TEMP 98.2
--- NOTE | 2017-01-18 12:03 | ED.PDOC ---
General ED Provider: Dr. YUMIKO GAN Chief Complaint: Urinary Problem Stated Complaint: howell dysfunction Time Seen by Physician: 11:45 Mode of Arrival: Walk-In Information Source: Patient Exam Limitations: No limitations Primary Care Provider: EMELIA CASTANEDA Nursing and Triage Documentation Reviewed and Agree: Yes Complaint Exam - Complaint/Exam Onset/Duration: 1 day cathter did not function well Initial Severity: Mild Current Severity: Mild Location of Pain: Reports: None Alleviating: Reports: None Associated Signs and Symptoms: Denies: Diaphoresis, Back pain, Fever, Hematuria , Dysuria, Constipation, Blood in stool, Rectal pain, Appetite change, Nausea, Vomiting, Penile swelling, Penile discharge, Decreased urine output, Increased urine frequency, Increased thirst, Decreased activity, Lethargy, Scrotal pain, Scrotal swelling, Abdominal Pain Review of Systems - Review Of Systems Constitutional: Reports: No symptoms Eyes: Reports: No symptoms Ears, Nose, Mouth, Throat: Reports: No symptoms Respiratory: Reports: No symptoms Cardiac: Reports: No symptoms GI: Reports: No symptoms : Reports: No symptoms Musculoskeletal: Reports: No symptoms Skin: Reports: No symptoms Neurological: Reports: No symptoms Endocrine: Reports: No symptoms Hematologic/Lymphatic: Reports: No symptoms All Other Systems: Reviewed and Negative Past Medical History - Past Medical History Previously Healthy: Yes Endocrine: Reports: DM 2, Dyslipidemia Cardiovascular: Reports: None Respiratory: Reports: COPD Hematological: Reports: None Gastrointestinal: Reports: GERD Genitourinary: Reports: None, Other (urinary retension.) Neuro/Psych: Reports: Other (note meds) Musculoskeletal: Reports: None Cancer: Reports: None Other Pertinent Past Medical History: ventral hernia - Surgical History General Surgical History: Reports: Unknown - Family History Family History: Reports: Unknown - Social History Smoking Status: Former smoker Hx Substance Use: No Alcohol Screening: None Physical Exam - Physical Exam Appearance: Well-appearing, No pain distress, Well-nourished Eyes: MIN, EOMI, Conjunctiva clear ENT: Ears normal, Nose normal, Oropharynx normal Respiratory: Airway patent, Breath sounds clear, Breath sounds equal, Respirations nonlabored Cardiovascular: RRR, Pulses normal, No rub, No murmur GI/: Soft, Nontender, No masses, Bowel sounds normal, No Organomegaly Musculoskeletal: Normal strength, ROM intact, No edema, No calf tenderness Skin: Warm, Dry, Normal color Neurological: Sensation intact, Motor intact, Reflexes intact, Cranial nerves intact, Alert, Oriented Psychiatric: Affect appropriate, Mood appropriate Critical Care Note - Critical Care Note Total Time (mins): 0 Course - Course Vital Signs: Temp Pulse Resp BP Pulse Ox 01/18/17 11:36 98.2 F 103 H 20 119/78 93 L Departure - Departure Time of Disposition: 12:03 Disposition: HOME SELF-CARE Discharge Problem: Howell catheter problem Qualifiers: Encounter type: initial encounter Qualified Code(s): T83.9XXA - Unspecified complication of genitourinary prosthetic device, implant and graft, initial encounter Instructions: Howell Catheter Placement and Care (ED) Condition: Good Pt referred to PMD for follow-up: Yes Additional Instructions: follow up with urologist as scheduled Allergies/Adverse Reactions: Allergies Penicillins Adverse Reaction (Verified 01/18/17 11:40) strawberry [[place]] Adverse Reaction (Verified 01/18/17 11:40) Home Medications: Ambulatory Orders Aspirin [Aspirin EC] 81 mg PO DAILYWM 03/12/13 Polyethylene Glycol 3350 [Miralax] 17 gm PO DAILY #900 powd.pack 12/31/16 Tamsulosin HCl [Flomax] 0.4 mg PO DAILY #30 cap.er.24h 12/31/16 Disposition Discussed With: Patient
== END 2017-01-18 12:08 | disposition home or self-care (01) ==
LOC: ED 11:36
DX: T83.9XXA Unspecified complication of genitourinary prosthetic device, implant and graft, initial encounter (principal)
CPT/HCPCS: 99281

== ENCOUNTER 2017-01-25 10:03 | Emergency (ER) ==
[2017-01-25 10:10] VITALS: BP 130/78; TEMP 97.4; BMI 31.9
--- NOTE | 2017-01-25 11:57 | ED.PDOC ---
General ED Provider: Dr. MICHAEL DICKSON Chief Complaint: Respiratory Complaint Stated Complaint: Cough productive of green sputum x 5 days, sinus congestion, no fever or chills, no SOB Time Seen by Physician: 11:48 Mode of Arrival: Walk-In Information Source: Patient Exam Limitations: No limitations Primary Care Provider: EMELIA CASTANEDA Nursing and Triage Documentation Reviewed and Agree: Yes Respiratory Complaint Exam - Respiratory Complaint/Exam Onset/Duration: 5 days Symptoms Are: Still present Timing: Constant Initial Severity: Mild Current Severity: Moderate Location: Chest Character: Reports: Productive cough (green sputum) Aggravating: Reports: None Alleviating: Reports: OTC Meds (sudafed helped some) Associated Signs and Symptoms: Reports: Nasal congestion, Sinus discomfort ( simus fullness but no pain) History of Healthcare-Acquired Pneumonia: No Related Surgical History: Reports: None Pulmonary Embolism Risk Factors: None Cardiac Risk Factors: Reports: Diabetes Pseudomonas Risk Factors: Reports: None Tuberculosis Risk Factors: Reports: Diabetes Status Asthmaticus Risk Factors: Reports: None Home Oxygen Use: No Recent Stress Test: No Recent Echo/LV Function: No Current Antibiotic Use: No Current Asthma Medication Use: No Respiratory Distress: None Inadequate Respiratory Effort: No Dysphagia Present: No Stridor Present: No JVD Present: No Retractions: Not Present Diminished Breath Sounds: No Sinus Tenderness: None Grunting Respirations: No Kussmaul Respirations: No Differential Diagnoses: Bronchitis, Sinusitis, URI, Lower Resp. Infection Review of Systems - Review Of Systems Constitutional: Reports: No symptoms Eyes: Reports: No symptoms Ears, Nose, Mouth, Throat: Reports: No symptoms Respiratory: Reports: Cough (productive of green sputum) Cardiac: Reports: No symptoms GI: Reports: Nausea (occcasional nausea from postnasal drainage) : Reports: No symptoms Musculoskeletal: Reports: Muscle pain (aching all over) Skin: Reports: No symptoms Neurological: Reports: No symptoms Endocrine: Reports: No symptoms Hematologic/Lymphatic: Reports: No symptoms All Other Systems: Reviewed and Negative Past Medical History - Past Medical History Previously Healthy: Yes Endocrine: Reports: DM 2, Dyslipidemia Cardiovascular: Reports: None Respiratory: Reports: COPD Hematological: Reports: None Gastrointestinal: Reports: GERD Genitourinary: Reports: None, Other (urinary retension.) Neuro/Psych: Reports: Other (note meds) Musculoskeletal: Reports: None Cancer: Reports: None Other Pertinent Past Medical History: ventral hernia - Surgical History General Surgical History: Reports: Orthopedic - Family History Family History: Reports: Unknown - Social History Smoking Status: Former smoker (quit x 10 years) Hx Substance Use: No Alcohol Screening: None Lives: Alone - Immunizations Tetanus Shot up to Date: No Influenza Vaccine within 12 Months: No Pneumococcal Vaccine up to Date: No Physical Exam - Physical Exam Appearance: Well-appearing, No pain distress, Well-nourished, Obese Ill-appearing: None Pain Distress: None Eyes: MIN, EOMI, Conjunctiva clear ENT: Nose normal, Oropharynx normal, TMs [place] (TMs perez and dull, sinuses nontender to percussion) Respiratory: Airway patent, Breath sounds clear, Breath sounds equal, Respirations nonlabored Cardiovascular: RRR, Pulses normal, No rub, No murmur GI/: Soft (obese), Nontender, No masses, Bowel sounds normal, No Organomegaly Musculoskeletal: Normal strength, ROM intact, No edema, No calf tenderness Skin: Warm, Dry, Normal color Neurological: Sensation intact, Motor intact, Reflexes intact, Cranial nerves intact, Alert, Oriented Psychiatric: Affect appropriate, Mood appropriate Critical Care Note - Critical Care Note Total Time (mins): 0 Course - Course Vital Signs: Temp Pulse Resp BP Pulse Ox 01/25/17 10:05 97.4 F L 96 H 20 130/78 96 Departure - Departure Time of Disposition: 12:09 Disposition: HOME SELF-CARE Discharge Problem: Bronchitis Instructions: Acute Bronchitis (ED) Condition: Good Pt referred to PMD for follow-up: No (see doctor if no better in 3 days) Allergies/Adverse Reactions: Allergies Penicillins Adverse Reaction (Verified 01/18/17 11:40) strawberry [[place]] Adverse Reaction (Verified 01/18/17 11:40) wool Adverse Reaction (Verified 01/25/17 10:11) Home Medications: Ambulatory Orders Aspirin [Aspirin EC] 81 mg PO DAILYWM 03/12/13 Polyethylene Glycol 3350 [Miralax] 17 gm PO DAILY #900 powd.pack 12/31/16 Tamsulosin HCl [Flomax] 0.4 mg PO DAILY #30 cap.er.24h 12/31/16 Cephalexin [Keflex] 500 mg PO QID #40 capsule 01/25/17 Disposition Discussed With: Patient
== END 2017-01-25 12:16 | disposition home or self-care (01) ==
LOC: ED 10:03
DX: J40 Bronchitis, not specified as acute or chronic (principal)
CPT/HCPCS: 99282

== ENCOUNTER 2017-02-06 11:43 | Outpatient (CLI) ==
[2017-02-06 12:10] LABS: ANION GAP 14.5; BUN/CREATININE RATIO 21.62; CALCIUM 9.5 mg/dL (8.2-10.2); CREATININE 0.74 mg/dL (0.60-1.10); POTASSIUM 4.5 mmol/L (3.5-5.1)
== END 2017-02-06 11:44 | disposition home or self-care (01) ==
LOC: LAB 11:43
PROVIDERS: ATTEND Nurse Practitioner Family
DX: E78.5 Hyperlipidemia, unspecified (principal); E11.9 Type 2 diabetes mellitus without complications
CPT/HCPCS: 36415; 80048

== ENCOUNTER 2017-02-22 10:10 | Emergency (ER) ==
[2017-02-22 10:14] VITALS: BP 116/71; TEMP 97.6; BMI 31.6
[2017-02-22 10:49] LABS: BASOPHILS # (AUTO) 0.1 K/uL (0-0.2); BASOPHILS % (AUTO) 0.8 % (0.0-3.0); EOSINOPHILS # (AUTO) 0.9 K/ul (0.0-0.7); EOSINOPHILS % (AUTO) 10.2 % (0.0-7.0); HEMATOCRIT 44.8 % (42.0-52.0); HEMOGLOBIN 14.8 g/dl (14.0-18.0); IMMATURE GRANULOCYTE % (AUTO) 0.5 % (0.0-5.0); LYMPHOCYTES # (AUTO) 1.4 K/uL (0.60-3.4); LYMPHOCYTES % (AUTO) 16.3 (10.0-50.0); MEAN CORPUSCULAR HEMOGLOBIN 26.4 pg (27.0-31.0); MEAN CORPUSCULAR VOLUME 79.9 fl (80.0-94.0); MONOCYTES # (AUTO) 0.8 K/uL (0.4-2.0); MONOCYTES % (AUTO) 9.4 (0-10); NEUTROPHILS # (AUTO) 5.5 K/ul (2.0-6.9); NEUTROPHILS % (AUTO) 62.8; PLATELET COUNT 236 10^3/uL (140-440); RED BLOOD COUNT 5.61 10^6/ul (4.70-6.10); WHITE BLOOD COUNT 8.81 K/ul (4.2-10.2)
--- NOTE | 2017-02-22 10:54 | DI ---
Exam: Two x-rays of the chest. Comparison: 02/11/2016. Reason for exam: Cough. FINDINGS: No pneumothorax, pleural effusion, or focal consolidation. The cardiac silhouette is not enlarged. The imaged osseous structures appear grossly unremarkable without acute fracture. Impression: No acute cardiopulmonary process.
[2017-02-22 11:08] LABS: FLU INTERNAL QC INTERNAL QC VALID; RAPID FLU A NEGATIVE (NEGATIVE); RAPID FLU B NEGATIVE (NEGATIVE)
[2017-02-22 11:10] LABS: ALBUMIN 3.6 g/dL (3.4-5.0); ALBUMIN/GLOBULIN RATIO 0.88; ANION GAP 13.1; BILIRUBIN,TOTAL 0.47 mg/dL (0.00-1.20); BUN/CREATININE RATIO 21.33; CREATININE 0.75 mg/dL (0.60-1.10); POTASSIUM 4.1 mmol/L (3.5-5.1); TOTAL PROTEIN 7.7 g/dL (5.8-8.1)
--- NOTE | 2017-02-22 11:29 | ED.PDOC ---
General ED Provider: Dr. YUMIKO GAN Chief Complaint: Respiratory Complaint Stated Complaint: COUGH, FLU LIKE SYMPTOMS Time Seen by Physician: 10:11 Mode of Arrival: Walk-In Information Source: Patient Exam Limitations: No limitations Primary Care Provider: EMELIA CASTANEDA Nursing and Triage Documentation Reviewed and Agree: Yes Respiratory Complaint Exam - Respiratory Complaint/Exam Symptoms Are: Still present Initial Severity: Moderate Current Severity: Moderate Character: Reports: Non-productive cough Aggravating: Reports: None Associated Signs and Symptoms: Reports: URI. Denies: Rapid breathing, Dyspnea, Fever, Chills, Chest pain, Pleuritic chest pain, Wheezing, Hemoptysis, Dizziness , Calf pain, Calf swelling, Edema, Nasal congestion, Hoarseness, Sinus discomfort, Vomiting, Sore throat, Weight loss, Decreased oral intake, Increased thirst, Increased appetite, Increased urination Related History: Reports: Similar episode History of Healthcare-Acquired Pneumonia: No Related Surgical History: Reports: None Pulmonary Embolism Risk Factors: None Cardiac Risk Factors: Reports: Elevated lipids, Diabetes Pseudomonas Risk Factors: Reports: None Tuberculosis Risk Factors: Reports: None Status Asthmaticus Risk Factors: Reports: None Home Oxygen Use: No Recent Stress Test: No Recent Echo/LV Function: No Current Antibiotic Use: No Current Asthma Medication Use: No Respiratory Distress: None Inadequate Respiratory Effort: No Dysphagia Present: No Stridor Present: No JVD Present: No Retractions: Not Present Diminished Breath Sounds: No Sinus Tenderness: None Grunting Respirations: No Kussmaul Respirations: No Differential Diagnoses: Pneumonia, Bronchitis Review of Systems - Review Of Systems Constitutional: Reports: Malaise Eyes: Reports: No symptoms Ears, Nose, Mouth, Throat: Reports: No symptoms Respiratory: Reports: Cough Cardiac: Reports: No symptoms GI: Reports: No symptoms : Reports: No symptoms Musculoskeletal: Reports: No symptoms Skin: Reports: No symptoms Neurological: Reports: No symptoms Endocrine: Reports: No symptoms Hematologic/Lymphatic: Reports: No symptoms All Other Systems: Reviewed and Negative Past Medical History - Past Medical History Previously Healthy: Yes Endocrine: Reports: DM 2, Dyslipidemia Cardiovascular: Reports: None Respiratory: Reports: COPD Hematological: Reports: None Gastrointestinal: Reports: GERD Genitourinary: Reports: None, Other (urinary retension.) Neuro/Psych: Reports: Other (note meds) Musculoskeletal: Reports: None Cancer: Reports: None Other Pertinent Past Medical History: ventral hernia - Surgical History General Surgical History: Reports: Orthopedic - Family History Family History: Reports: Unknown - Social History Smoking Status: Former smoker Hx Substance Use: No Alcohol Screening: None - Immunizations Influenza Vaccine within 12 Months: No Pneumococcal Vaccine up to Date: No Physical Exam - Physical Exam Appearance: Well-appearing, No pain distress, Well-nourished Eyes: MIN, EOMI, Conjunctiva clear ENT: Ears normal, Nose normal, Oropharynx normal Respiratory: Rhonchi Cardiovascular: RRR, Pulses normal, No rub, No murmur GI/: Soft, Nontender, No masses, Bowel sounds normal, No Organomegaly Musculoskeletal: Normal strength, ROM intact, No edema, No calf tenderness Skin: Warm, Dry, Normal color Neurological: Sensation intact, Motor intact, Reflexes intact, Cranial nerves intact, Alert, Oriented Psychiatric: Affect appropriate, Mood appropriate Interpretation - Radiology Interpretation Radiology Interpretation By: Radiologist Radiology Results: No acute changes Critical Care Note - Critical Care Note Total Time (mins): 0 Course - Course Hematology/Chemistry: 02/22/17 10:40 02/22/17 10:40 Orders, Labs, Meds: Lab Review 02/22/17 02/22/17 02/22/17 10:40 10:40 10:40 WBC 8.81 RBC 5.61 Hgb 14.8 Hct 44.8 MCV 79.9 L MCH 26.4 L MCHC 33.0 RDW Coeff of Edwin 14.7 Plt Count 236 Immature Gran % (Auto) 0.5 Neut % (Auto) 62.8 Lymph % (Auto) 16.3 Jackson % (Auto) 9.4 Eos % (Auto) 10.2 H Baso % (Auto) 0.8 Immature Gran # (Auto) 0.0 Neut # 5.5 Lymph # 1.4 Jackson # 0.8 Eos # 0.9 H Baso # 0.1 Sodium 140 Potassium 4.1 Chloride 107 Carbon Dioxide 24 Anion Gap 13.1 BUN 16 Creatinine 0.75 Estimated GFR (MDRD) 106.00 BUN/Creatinine Ratio 21.33 Glucose 128 H Calcium 10.0 Total Bilirubin 0.47 AST 18 ALT 19 Alkaline Phosphatase 98 Total Protein 7.7 Albumin 3.6 Globulin 4.1 Albumin/Globulin Ratio 0.88 Influenza A (Rapid) Negative Influenza B (Rapid) Negative Orders Category Date Time Status CBC W/ AUTO DIFF Stat LAB 02/22/17 10:40 Completed COMPREHENSIVE METABOLIC PANEL Stat LAB 02/22/17 10:40 Completed MOLECULAR GROUP A STREP Stat LAB 02/22/17 10:40 Results RAPID FLU A/B Stat LAB 02/22/17 10:40 Completed STREP SCREEN Stat LAB 02/22/17 10:40 Results CHEST, 2 VIEWS PA & LAT Stat RADS 02/22/17 10:21 Completed Vital Signs: Temp Pulse Resp BP Pulse Ox 02/22/17 10:11 97.6 F 103 H 20 116/71 95 Departure - Departure Time of Disposition: 11:29 Disposition: HOME SELF-CARE Discharge Problem: Bronchitis Instructions: Acute Bronchitis (ED), Wheezing (ED), How Your Lungs Work (ED), Bronchospasm (ED) Condition: Good Pt referred to PMD for follow-up: Yes Additional Instructions: Please call your Family Physician as soon as possible to schedule a follow-up appointment. Allergies/Adverse Reactions: Allergies Penicillins Adverse Reaction (Verified 02/22/17 10:14) strawberry [[place]] Adverse Reaction (Verified 02/22/17 10:14) wool Adverse Reaction (Verified 02/22/17 10:14) Home Medications: Ambulatory Orders Aspirin [Aspirin EC] 81 mg PO DAILYWM 03/12/13 Tamsulosin HCl [Flomax] 0.4 mg PO DAILY #30 cap.er.24h 12/31/16 Cefuroxime Axetil [Ceftin] 500 mg PO BID #14 susp.recon 02/22/17 Hydrocodone/Chlorphen Polis [Tussionex] 5 ml PO Q12H 7 Days disp.syrin Prednisone 10 mg PO DAILYWM #7 tablet 02/22/17 Disposition Discussed With: Patient
== END 2017-02-22 11:38 | disposition home or self-care (01) ==
LOC: ED 10:10
DX: J40 Bronchitis, not specified as acute or chronic (principal)
CPT/HCPCS: 36415; 80053; 85025; 87651; 87804; 87880; 99283

== ENCOUNTER 2017-03-15 11:52 | Outpatient (CLI) ==
[2017-03-15 12:10] LABS: BASOPHILS % (AUTO) 0.6 % (0.0-3.0); EOSINOPHILS # (AUTO) 0.4 K/ul (0.0-0.7); EOSINOPHILS % (AUTO) 5.6 % (0.0-7.0); HEMATOCRIT 44.2 % (42.0-52.0); HEMOGLOBIN 14.5 g/dl (14.0-18.0); IMMATURE GRANULOCYTE % (AUTO) 0.3 % (0.0-5.0); LYMPHOCYTES # (AUTO) 1.9 K/uL (0.60-3.4); LYMPHOCYTES % (AUTO) 29.7 (10.0-50.0); MEAN CORPUSCULAR HEMOGLOBIN 27.1 pg (27.0-31.0); MEAN CORPUSCULAR HGB CONC 32.8 (31.8-35.4); MEAN CORPUSCULAR VOLUME 82.6 fl (80.0-94.0); MONOCYTES # (AUTO) 0.6 K/uL (0.4-2.0); MONOCYTES % (AUTO) 9.4 (0-10); NEUTROPHILS # (AUTO) 3.5 K/ul (2.0-6.9); NEUTROPHILS % (AUTO) 54.4; PLATELET COUNT 171 10^3/uL (140-440); RED BLOOD COUNT 5.35 10^6/ul (4.70-6.10); WHITE BLOOD COUNT 6.47 K/ul (4.2-10.2)
[2017-03-15 12:26] LABS: ALBUMIN 3.6 g/dL (3.4-5.0); ALBUMIN/GLOBULIN RATIO 0.95; ANION GAP 15.6; BILIRUBIN,TOTAL 0.37 mg/dL (0.00-1.20); BUN/CREATININE RATIO 33.33; CALCIUM 9.9 mg/dL (8.2-10.2); CHOL/HDL RATIO 3.5 (4.5-6.4); CREATININE 0.75 mg/dL (0.60-1.10); POTASSIUM 4.6 mmol/L (3.5-5.1); TOTAL PROTEIN 7.4 g/dL (5.8-8.1)
== END 2017-03-15 11:53 | disposition home or self-care (01) ==
LOC: LAB 11:52
PROVIDERS: ATTEND Physician Assistant
DX: E11.9 Type 2 diabetes mellitus without complications (principal)
CPT/HCPCS: 36415; 80053; 80061; 83036; 85025

== ENCOUNTER 2017-03-23 08:54 | Outpatient (CLI) ==
--- NOTE | 2017-03-23 09:40 | US ---
EXAM: Renal ultrasound HISTORY: Type 2 diabetes COMPARISON: CT abdomen pelvis 12/31/2016 TECHNIQUE: Sonographic evaluation of the kidneys was performed with limited Doppler evaluation. FINDINGS: The right kidney measures 10.2 x 5.3 x 4.7 cm with renal cortical thickness of 1.3 cm. Th ere is normal echogenicity and color Doppler flow. No stone or hydronephrosis is identified. The left kidney measures 10.5 x 5.7 x 4.4 cm with renal cortical thickness of 1.4 cm. There is azra l echogenicity and color Doppler flow. No stone or hydronephrosis is identified. Evaluation of the urinary bladder was unable to be obtained due to overlying bandage material. IMPRESSION: No sonographic abnormality of the renal collecting system.
== END 2017-03-23 08:55 | disposition home or self-care (01) ==
LOC: RAD 08:54
PROVIDERS: ATTEND Physician Assistant
DX: E11.9 Type 2 diabetes mellitus without complications (principal)
CPT/HCPCS: 76770

== ENCOUNTER 2017-08-03 10:43 | Outpatient (CLI) ==
--- NOTE | 2017-08-03 12:08 | CT ---
EXAM: CT sinuses/facial bones without contrast HISTORY: Face injury 9 days prior with bruising near the right eye and jaw COMPARISON: None TECHNIQUE: Serial axial images of the facial bones/sinuses were obtained without IV contrast. These were viewed in coronal, sagittal and axial planes. FINDINGS: The mandible demonstrates no cortical irregularity or displaced fracture. Zygomatic arche s are maintained. There is no nasal bone fracture. The maxillary sinuses demonstrate no displaced f racture. There is scattered soft tissue thickening throughout the paranasal sinuses. There is right junior nasal septal deviation. The osseous orbital borders are maintained. Mastoid air cells are clear. There is minimal subcutane ous edema of the right face and periorbital soft tissues. The orbital globe and retrobulbar structur es are normal. IMPRESSION: 1. Soft tissue swelling in the right face and periorbital region with no underlying facial bone frac ture. 2. Moderate scattered acute on chronic paranasal sinus disease. 3. The mandible is normal.
== END 2017-08-03 10:44 | disposition home or self-care (01) ==
LOC: RAD 10:43
PROVIDERS: ATTEND Physician Assistant
DX: S09.93XA Unspecified injury of face, initial encounter (principal)

== ENCOUNTER 2017-09-18 11:02 | Outpatient (CLI) | END 2017-09-18 11:03 | disposition home or self-care (01) | LOC: LAB 11:02 | PROVIDERS: ATTEND Physician Assistant | DX: E78.5 Hyperlipidemia, unspecified (principal); E11.9 Type 2 diabetes mellitus without complications | CPT/HCPCS: 36415; 80053; 80061; 83036; 85025 ==

== ENCOUNTER 2017-12-14 12:51 | Outpatient (CLI) | END 2017-12-14 12:52 | disposition home or self-care (01) | LOC: LAB 12:51 | PROVIDERS: ATTEND Internal Medicine Nephrology | DX: N18.1 Chronic kidney disease, stage 1 (principal); E11.9 Type 2 diabetes mellitus without complications; Z12.5 Encounter for screening for malignant neoplasm of prostate | CPT/HCPCS: 36415; 80053; 80061; 82043; 83036; 85025 ==

== ENCOUNTER 2018-04-23 08:21 | Outpatient (CLI) | END 2018-04-23 08:22 | disposition home or self-care (01) | LOC: LAB 08:21 | PROVIDERS: ATTEND Physician Assistant | DX: E11.9 Type 2 diabetes mellitus without complications (principal) | CPT/HCPCS: 36415; 80053; 80061; 82043; 83036; 85025 ==

== ENCOUNTER 2018-05-16 13:14 | Outpatient (CLI) ==
--- NOTE | 2018-05-16 13:59 | DI ---
Exam: Three views of the cervical spine. Comparison: None available. Reason for exam: Cervical disc disease. FINDINGS: Imaging is obtained from the C2 to the C5 vertebral body. The inferior cervical spine is not well seen secondary to summation artifact. The dens appears intact on the open-mouth odontoid vi ew. There is multilevel degenerative disease with intervertebral body disc space height narrowing an d osteophyte formation. There is straightening of the cervical lordotic curve. The patient is edent ulous. The prevertebral soft tissues measure within normal limits. Impression: 1. No obvious fracture or listhesis in the cervical spine. 2. Moderate multilevel degenerative disease with intervertebral body disc space height narrowing and osteophyte formation with facet hypertrophy. If clinical concern exists for radiculopathy or myelop athy, MRI could be performed for further characterization.
--- NOTE | 2018-05-16 16:51 | MRI ---
EXAM: MRI lumbar spine without IV contrast. DATE: 16 May 2018. HISTORY: Intervertebral disc disease. Low back pain. TECHNIQUE: Sagittal and axial T1W and T2W sequences of the lumbar spine along with sagittal IR and c oronal T2W sequences were obtained using 1.2 Emily magnet. No IV contrast. COMPARISON: LS spine series 05/03/2012. MRI L-spine 17 June 2015. FINDINGS: There are five [id number] lumbar vertebra. Mild leftward curvature of the lumbar spi ne is evident. A 3.8 mm retrolisthesis of L4 relative to L5 and a 2 mm anterolisthesis of L5 relativ e to S1 are observed. A 2.5 mm left lateral translation of the L4 relative to L5 is also seen. Mild anterior wedge appearance of the T11 and T12 vertebral is noted. No other subluxation, acute fractu re, osseous malignancy, or pars interarticularis defect is demonstrated. Lumbar vertebrae normal in height. Bone marrow signal is overall normal. Mild T11-12, moderate L4-5, and marked L5-S1 disc spa ce narrowing is detected. No acute sacral fracture or stress reaction is evident. SI joints are unr emarkable. Conus medullaris terminates at T12-L1. Visible spinal cord is normal. No retroperitoneal lymphadenopathy, paraspinal mass, or aortic aneurysm is detected. Paraspinal musc ulature is symmetric bilaterally. Visible portions of the liver, spleen, adrenal glands, kidneys, an d gallbladder reveal no definitive abnormality. No bowel obstruction or malignancy is seen. Urinary bladder is moderately distended. No definitive bladder wall thickening, neoplasm, trabeculation or diverticulum is demonstrated. Segmental analysis: T10-11: Sagittal images reveal mild/moderate right foraminal narrowing due to mild right facet arthr opathy. Ligamentum flavum hypertrophy and facet disease appeared cause mild central canal stenosis. T11-12: Sagittal images reveal mild central canal stenosis due to mild facet arthropathy and ligamen sahra flavum hypertrophy. Each foramen is patent. T12-L1: Normal, except for minor left facet arthropathy. L1-2: Small bilobed posterior disc bulge and minor facet arthropathy cause mild central canal stenos is and minor right foraminal narrowing. L2-3: Minor left foraminal to far lateral disc bulge and minor facet arthropathy cause minor left fo raminal narrowing. No central canal stenosis. L3-4: Small concentric disc bulge, minor bilateral facet arthropathy, mild ligamentum flavum hypertr ophy and dorsal epidural fat cause triangulation of the canal, mild right foraminal narrowing, and mi nor left foraminal encroachment. Left L3 nerve root contacts the disc bulge near the lateral margin of the foramen. L4-5: Small concentric disc bulge, moderate right facet arthropathy, mild left facet arthropathy, mi ld ligamentum flavum hypertrophy cause mild central canal stenosis, and mild bilateral foraminal sten oses. Left L4 nerve root contacts the disc bulge just lateral to the foramen. There is mild left la teral recess stenosis near the superior endplate of L5. L5-S1: Large concentric disc bulge, small posterior spondylotic ridge at the L5 inferior endplate, m oderate bilateral facet arthropathy, and mild ligamentum flavum hypertrophy cause mild central canal stenosis and marked/severe bilateral foraminal stenoses. Each L5 nerve root appears compressed in th e foramen. IMPRESSIONS: 1. Thoracolumbar mild levoscoliosis, mild spondylosis, mild/moderate facet arthropathy minor subluxa tions, and multilevel DDD. 2. Multilevel central canal stenoses (T10-11: Mild. T11-12: Mild. L1-2: Mild. L3-4: Minor. L4-5: Mild. L5-S1: Mild). 3. Multilevel lumbar foraminal stenoses. Left L3, left L4 and both L5 nerve roots are compromised n ear the foramen, and may be sources for pain/radiculopathy. 4. Chronic, mild compression fractures of T11 and T12. 5. Mild urinary bladder distension. No bladder lesion.
== END 2018-05-16 13:15 | disposition home or self-care (01) ==
LOC: RAD 13:14
PROVIDERS: ATTEND Pain Medicine Interventional Pain Medicine
DX: M50.33 Other cervical disc degeneration, cervicothoracic region (principal); M47.812 Spondylosis without myelopathy or radiculopathy, cervical region; M54.16 Radiculopathy, lumbar region; M54.17 Radiculopathy, lumbosacral region; M51.36 Other intervertebral disc degeneration, lumbar region; M51.37 Other intervertebral disc degeneration, lumbosacral region; M47.816 Spondylosis without myelopathy or radiculopathy, lumbar region; M47.817 Spondylosis without myelopathy or radiculopathy, lumbosacral region

== ENCOUNTER 2018-07-24 08:03 | Outpatient (CLI) | END 2018-07-24 08:04 | disposition home or self-care (01) | LOC: LAB 08:03 | PROVIDERS: ATTEND Nurse Practitioner Family | DX: E11.21 Type 2 diabetes mellitus with diabetic nephropathy (principal); E78.2 Mixed hyperlipidemia | CPT/HCPCS: 36415; 80053; 80061; 82043; 83036; 85007; 85025 ==

== ENCOUNTER 2018-08-14 14:24 | Emergency (ER) ==
[2018-08-14 14:31] VITALS: BP 94/60; TEMP 98.7; BMI 33.0
--- NOTE | 2018-08-14 15:41 | ED.PDOC ---
General ED Provider: Dr. YUMIKO GAN Chief Complaint: Respiratory Complaint Stated Complaint: COUGH, CONGESTION Time Seen by Physician: 15:00 Mode of Arrival: Walk-In Information Source: Patient Exam Limitations: No limitations Primary Care Provider: EMELIA CASTANEDA Nursing and Triage Documentation Reviewed and Agree: Yes Does patient meet sepsis criteria?: Yes (SEEN WITH ROGER AT ALL TIMES ) If yes, has appropriate treatment been initiated?: No System Inflammatory Response Syndrome: Not Applicable Sepsis Protocol: For patient's 13 years and over: Temp is 96.8 and below OR 101 and greater Pulse >90 BPM Resp >20/minute Acutely Altered Mental Status Are patient's symptoms suggestive of a new infection, such as: -Pneumonia -Skin, Soft Tissue -Endocarditis -UTI -Bone, Joint Infection -Implantable Device -Acute Abdominal Infection -Wound Infection -Meningitis -Blood Stream Catheter Infection -Unknown Respiratory Complaint Exam - Respiratory Complaint/Exam Symptoms Are: Still present Timing: Intermittent Initial Severity: Mild Current Severity: Mild Location: Nose, Throat, Chest Character: Reports: Non-productive cough, Dry cough Aggravating: Reports: URI Alleviating: Reports: None Associated Signs and Symptoms: Reports: Nasal congestion. Denies: Rapid breathing, Dyspnea, Fever, Chills, Chest pain, Pleuritic chest pain, Wheezing, Hemoptysis, Dizziness, Calf pain, Calf swelling, Edema, URI, Hoarseness, Sinus discomfort, Vomiting, Sore throat, Weight loss, Decreased oral intake, Increased thirst, Increased appetite, Increased urination Related History: Reports: Similar episode History of Healthcare-Acquired Pneumonia: No Related Surgical History: Reports: None Pulmonary Embolism Risk Factors: None Cardiac Risk Factors: Reports: Elevated lipids, Diabetes Pseudomonas Risk Factors: Reports: None Tuberculosis Risk Factors: Reports: None Status Asthmaticus Risk Factors: Reports: None Home Oxygen Use: No Recent Stress Test: No Recent Echo/LV Function: No Current Antibiotic Use: No Current Asthma Medication Use: Yes Respiratory Distress: None Inadequate Respiratory Effort: No Dysphagia Present: No Stridor Present: No JVD Present: No Accessory Muscle Use: No Retractions: Not Present Diminished Breath Sounds: No Sinus Tenderness: None Grunting Respirations: No Kussmaul Respirations: No Differential Diagnoses: Bronchitis Review of Systems - Review Of Systems Constitutional: Reports: No symptoms Eyes: Reports: No symptoms Ears, Nose, Mouth, Throat: Reports: No symptoms Respiratory: Reports: Cough Cardiac: Reports: No symptoms GI: Reports: No symptoms : Reports: No symptoms Musculoskeletal: Reports: No symptoms Skin: Reports: No symptoms Neurological: Reports: No symptoms Endocrine: Reports: No symptoms Hematologic/Lymphatic: Reports: No symptoms All Other Systems: Reviewed and Negative Past Medical History - Past Medical History Previously Healthy: Yes Endocrine: Reports: DM 2, Dyslipidemia Cardiovascular: Reports: None Respiratory: Reports: COPD Hematological: Reports: None Gastrointestinal: Reports: GERD Genitourinary: Reports: None, Other (urinary retension.) Neuro/Psych: Reports: Other (note meds) Musculoskeletal: Reports: None Cancer: Reports: None Other Pertinent Past Medical History: ventral hernia - Surgical History General Surgical History: Reports: Orthopedic - Family History Family History: Reports: Unknown - Social History Smoking Status: Former smoker Hx Substance Use: No Alcohol Screening: None - Immunizations Influenza Vaccine within 12 Months: No Pneumococcal Vaccine up to Date: No Physical Exam - Physical Exam Appearance: Well-appearing, No pain distress, Well-nourished Eyes: MIN, EOMI, Conjunctiva clear ENT: Ears normal, Nose normal, Oropharynx normal Respiratory: Airway patent, Breath sounds clear, Breath sounds equal, Respirations nonlabored Cardiovascular: RRR, Pulses normal, No rub, No murmur GI/: Soft, Nontender, No masses, Bowel sounds normal, No Organomegaly Musculoskeletal: Normal strength, ROM intact, No edema, No calf tenderness Skin: Warm, Dry, Normal color Neurological: Sensation intact, Motor intact, Reflexes intact, Cranial nerves intact, Alert, Oriented Psychiatric: Affect appropriate, Mood appropriate Critical Care Note - Critical Care Note Total Time (mins): 0 Course - Course Vital Signs: Temp Pulse Resp BP Pulse Ox 08/14/18 14:25 98.7 F 108 H 20 94/60 93 L Departure - Departure Time of Disposition: 15:40 Disposition: HOME SELF-CARE Discharge Problem: Bronchitis Instructions: Acute Bronchitis (ED) Condition: Good Pt referred to PMD for follow-up: Yes IPMP verified?: No Additional Instructions: Please call your Family Physician as soon as possible to schedule a follow-up appointment. Allergies/Adverse Reactions: Allergies Penicillins Adverse Reaction (Verified 08/14/18 14:31) strawberry [Tynan] Adverse Reaction (Verified 08/14/18 14:31) wool Adverse Reaction (Verified 08/14/18 14:31) Home Medications: Ambulatory Orders Aspirin [Aspirin EC] 81 mg PO DAILYWM 03/12/13 Bupropion HCl [Wellbutrin Xl] 150 mg PO DAILY 08/14/18
== END 2018-08-14 15:52 | disposition home or self-care (01) ==
LOC: ED 14:24
DX: J40 Bronchitis, not specified as acute or chronic (principal); E78.5 Hyperlipidemia, unspecified; E11.9 Type 2 diabetes mellitus without complications; J44.9 Chronic obstructive pulmonary disease, unspecified
CPT/HCPCS: 99282